=== PATIENT | female | born 1985 | race Two or more races ===

== ENCOUNTER → 2019-05-21 06:15 | Outpatient (CLI) | payer OTHER, SELFPAY ==
--- NOTE | 2019-05-21 06:39 | MRI_ITS ---
STUDY: MRI ORBITS WITH AND WITHOUT CONTRAST REASON FOR EXAM: Female, 33 years old. headaches,eye pressure TECHNIQUE: Standardized fat and water weighted pulse sequences were obtained in all 3 orthogonal planes, pre-and post contrast administration. 25ML iv Dotarem was administered for the contrast portion of the examination. COMPARISON: None. FINDINGS: Normal bilateral globes. Normal bilateral optic nerve sheath complexes and optic nerves. Normal bilateral intraconal and extraconal spaces. Normal bilateral extraocular muscles. Normal optic chiasm and post-chiasmatic tracts. Normal sella turcica, pituitary gland, infundibular stalk, and hypothalamus. Normal bilateral cavernous sinuses. Normal tectal plate and pineal gland. Normal flow voids within the major intracranial circulation suggesting patency by spin echo criteria. Normal size of the ventricles and extra-axial spaces for the patient''s age. Normal white matter tracts of the supratentorial brain. Normal bilateral basal ganglia. Normal thalami. There is no extra-axial fluid accumulation. Normal midbrain, jovi and medulla. Normal cerebellum. Normal basal cisterns. MRI/Brain W/WO Contrast IMPRESSION: Normal enhanced and unenhanced MRI of the orbits. Electronically Signed: Caleb Hartman MD at 10:11 EST Tel , Service support ,
== END ==
PROVIDERS: Family Provider Family Medicine; PCP Family Medicine; Referring Provider Otolaryngology; Visit Provider Otolaryngology
DX: R51 Headache (principal); H57.89 Other specified disorders of eye and adnexa
CPT/HCPCS: 70553; A9575

== ENCOUNTER → 2019-08-04 07:58 | Outpatient (CLI) | payer OTHER, SELFPAY ==
--- NOTE | 2019-08-04 08:16 | MRI_ITS ---
STUDY: MRI CERVICAL SPINE WITHOUT CONTRAST REASON FOR EXAM: Female, 34 years old. upper neck pain,headaches, TECHNIQUE: Standardized fat and water weighted pulse sequences were obtained in the sagittal and axial planes. COMPARISON: None FINDINGS: Normal foramen magnum and brainstem-cervical cord junction. Normal craniovertebral junction. Normal anterior atlantoaxial articulation. Normal odontoid process. Normal cervical lordosis. C2-3: Normal endplates. Normal disc height, signal and morphology. Normal central canal and intervertebral neural foramina. C3-4: There is minimal disc space narrowing and endplate spondylosis. There is no significant disc herniation, central canal or foraminal stenosis. C4-5: There is minimal disc space narrowing and endplate spondylosis. There is no significant disc herniation, central canal or foraminal stenosis. C5-6: Normal endplates. Normal disc height, signal and morphology. Normal central canal and intervertebral neural foramina. C6-7: Normal endplates. Normal disc height, signal and morphology. Normal central canal and intervertebral neural foramina. C7-T1: Normal endplates. Normal disc height, signal and morphology. Normal central canal and intervertebral neural foramina. Normal cervical cord. Normal visualized soft tissue structures. MRI/Spine Cervical (Routine) IMPRESSION: Minimal degenerative changes without central canal or foraminal stenosis.. Electronically Signed: Caleb Hartman MD at 8:15 EST Tel , Service support ,
== END ==
PROVIDERS: PCP Family Medicine
DX: M54.2 Cervicalgia (principal)
CPT/HCPCS: 72141